=== PATIENT | female | born 1970 | race African-American/Black ===

== ENCOUNTER 2022-10-05 09:36 | Emergency (ER) | payer OTHER, SELFPAY ==
--- NOTE | ~2022-10-05 | CT_ITS ---
EXAMINATION: CT lumbar spine wo con DATE: 10/05/2022 10:55 INDICATION: Back pain and right leg weakness TECHNIQUE: Computed tomography (CT) of the lumbar spine was performed without intravenous contrast. A utomated exposure control and iterative reconstruction technique were employed. The dose-length produ ct was 915.80 mGy-cm. COMPARISON: None FINDINGS: 10 degree lumbar levoscoliosis measured between T12 and L4. Sagittal alignment is normal. V ertebral body heights are normal. Moderate disc height loss at L4-L5. Mild disc height loss at L3-L4 and mild right-sided disc height loss at T12-L1 through L2-L3. Paravertebral soft tissues are unremar kable. 5 mm fat attenuation angiomyolipoma at the lower pole of the left kidney. Normal appendix. The following disc levels are specifically discussed: T11-T12: The disc does not extend beyond the endplate margin. There is moderate bilateral facet joint osteoarthritis. There is no neural foraminal stenosis. There is no central canal stenosis. T12-L1: The disc does not extend beyond the endplate margin. There is mild to moderate bilateral face t joint osteoarthritis. There is no neural foraminal stenosis. There is no central canal stenosis. L1-L2: The disc does not extend beyond the endplate margin. There is mild to moderate bilateral facet joint osteoarthritis. There is no neural foraminal stenosis. There is no central canal stenosis. L2-L3: Disc is bulging with suggestion of superimposed right paracentral disc extrusion. There is mod erate bilateral facet joint osteoarthritis. There is mild bilateral neural foraminal stenosis. There is moderate central canal stenosis narrowing of the right lateral recess. L3-L4: Disc is bulging. There is severe bilateral facet joint osteoarthritis. There is mild right and moderate left neural foraminal stenosis. There is mild central canal stenosis. L4-L5: Disc is bulging. There is mild right and moderate left facet joint osteoarthritis. There is mi ld right and moderate left neural foraminal stenosis. There is mild central canal stenosis. L5-S1: Disc is bulging. There is severe right and moderate left facet joint osteoarthritis. There is moderate right and moderate to severe left neural foraminal stenosis. There is mild central canal petra nosis. IMPRESSION: 1. Moderate lumbar spondylosis most notable for disc bulge and right paracentral disc extrusion at L2 -L3 resulting in moderate central canal stenosis and prominent narrowing of the right lateral recess. Reviewed, dictated and finalized at location A. IMPRESSION: 1. Moderate lumbar spondylosis most notable for disc bulge and right paracentra l disc extrusion at L2-L3 resulting in moderate central canal stenosis and prom inent narrowing of the right lateral recess.
[2022-10-05 09:52] VITALS: BP 130/61; PULSE 61; RESP 18; TEMP 36.3; O2SAT 100
--- NOTE | 2022-10-05 10:26 | ED.BACK ---
HPI - Back Pain/Injury General Chief Complaint: Back Pain/Injury Stated Complaint: back pain Time Seen by Provider: 10/05/22 10:04 History of Present Illness HPI Narrative: This is a 52-year-old female with past history of hypertension, who presents to the emergency department complaining of low back and right leg pain. The patient denies any recent trauma or heavy lifting, though notes yesterday while sitting, she developed sharp low back pain that radiated to the right leg. It is constant, rated 8/10 and did not improve with Tylenol. She notes some right leg weakness, but denies loss of sensation or loss of bowel or bladder Related Data Allergies Allergy/AdvReac Type Severity Reaction Status Date / Time amlodipine Allergy Swelling Verified 10/05/22 10:35 of Lip/Tongue/Throat chlorhexidine Allergy Blister Verified 10/05/22 10:35 morphine Allergy Itching Verified 10/05/22 10:35 shellfish derived Allergy Swelling Verified 10/05/22 10:36 of Lip/Tongue/Throat Review of Systems Review of Systems: CONSTITUTIONAL: Denies fever, chills, or sweats. CARDIOVASCULAR: Denies chest pain, palpitations, or edema. RESPIRATORY: Denies cough or dyspnea. GASTROINTESTINAL: Denies abdominal pain, nausea, vomiting, or diarrhea. GENITOURINARY: Denies dysuria or hematuria. SKIN: Denies rash or itching. MUSCULOSKELETAL: Back pain denies joint pain, or myalgia. NEUROLOGIC: Right leg weakness denies headache, numbness, dizziness, PSYCHIATRIC: Denies anxiety or depression. PMFSH Past Medical History Medical History (Updated 10/05/22 @ 12:04 by Adrián Mccormack MD) Hypertension Surgical History Surgical History (Updated 10/05/22 @ 10:28 by Adrián Mccormack MD) Hx of umbilical hernia repair Status post hysterectomy Social History Social History (Updated 10/05/22 @ 10:28 by Adrián Mccormack MD) Smoking status: Never smoker Alcohol intake: current Drinks per week: 1 Substance use: never Exam Narrative: GENERAL: Well-developed, well-nourished, mild distress due to pain HEAD: Normocephalic, atraumatic. EYES: PERRLA and EOMI. NECK: Supple. No adenopathy or masses. No carotid bruits or JVD. No midline spine tenderness to palpation, no step-off or crepitus CHEST: Clear to auscultation. No respiratory distress. No wheezes rales or rhonchi HEART: Regular rate and rhythm. No murmur heard. Normal peripheral pulses. ABDOMEN: Soft, nontender, nondistended, normal active bowel sounds. BACK: No midline spine tenderness to palpation, no step-off or crepitus. Right lumbar paraspinal tenderness to palpation. EXTREMITIES: Normal range of motion. No edema. SKIN: Warm, dry, no rash. NEURO: No focal deficits. Alert and oriented x3. Strength 5/5 in all extremities, sensation intact bilaterally PSYCH: Normal mood and affect. Course Course Emergency Course: 11:40 - CT lumbar spine demonstrates ?right paracentral disc extrusion at L2-L3 resulting in moderate central canal stenosis and prominent narrowing of the right lateral recess. Again, the patient's exam is not concerning for focal neural deficit. Discussed findings with recommendations for pain medication with NSAIDs, muscle relaxers and follow-up with primary care doctor and potentially physical therapy. Discussed return and emergency precautions including signs/symptoms of cauda equina. The patient voiced understanding and is comfortable with the plan. All questions answered to her satisfaction. Vital Signs Vital signs: Vital Signs Temperature 97.4 F L 10/05/22 09:52 Pulse Rate 61 10/05/22 09:52 Respiratory Rate 18 10/05/22 09:52 Blood Pressure 130/61 10/05/22 09:52 Pulse Oximetry 100 10/05/22 09:52 Oxygen Delivery Room Air 10/05/22 09:52 Temperature 97.4 F L 10/05/22 09:52 Pulse Rate 61 10/05/22 09:52 Respiratory Rate 18 10/05/22 09:52 Blood Pressure 130/61 10/05/22 09:52 Pulse Oximetry 100
[2022-10-05] MEDS: KETOROLAC 30 MG/ML VIAL (*BKC) IM (10:37)
[2022-10-05] MEDS: CYCLOBENZAPRINE HCL 5 MG TABLET PO (10:37)
[2022-10-05] MEDS: LIDOCAINE 5% PATCH 1 PATCH TRANSDERM (10:37)
[2022-10-05] MEDS: oxyCODONE/ACETAMINOPHEN (*CRX) 5-325 MG TABLET 1 TABLET PO (12:21)
== END 2022-10-05 12:30 | disposition home or self-care (01) ==
PROVIDERS: Emergency Provider Preventive Medicine Aerospace Medicine
DX: M54.16 Radiculopathy, lumbar region (principal); M51.26 Other intervertebral disc displacement, lumbar region; I10 Essential (primary) hypertension
CPT/HCPCS: 72131; 96372; 99284; A9270; J1885